=== PATIENT | female | born 1995 | race Two or more races ===

== ENCOUNTER 2017-11-19 19:13 | Inpatient (IN) | payer SELFPAY ==
[2017-11-19] MEDS ORDERED: NS 1,000 ML IV ONE ×5 (19:19→22:20)
[2017-11-19 19:35] LABS: PLATELET COUNT 470 10^3/uL (150-400)
[2017-11-19 20:43] LABS: CREATINE KINASE 11316 IU/L (0-156)
--- NOTE | 2017-11-19 20:54 | CPEKG ---
Heart Rate: 100 RR Interval: 600 P-R Interval: 124 QRSD Interval: 82 QT Interval: 384 QTC Interval: 496 P [place]: 47 QRS [place]: 61 T Wave [place]: 44 EKG Severity - ABNORMAL ECG - EKG Impression: SINUS TACHYCARDIA EKG Impression: PROLONGED QT INTERVAL Electronically Signed By: José Coyle 22-Nov-2017 20:38:01
[2017-11-19] MEDS ORDERED: PROMETHAZINE HCL 25 MG/ML INJ IVP PRN (21:27)
[2017-11-19] MEDS ORDERED: ONDANSETRON DISINTEGRATING 4 MG TAB PO PRN (21:27)
[2017-11-19] MEDS ORDERED: ONDANSETRON 4 MG/2 ML VIAL IVP PRN (21:27)
[2017-11-19] MEDS ORDERED: ACETAMINOPHEN 325 MG TAB PO PRN (21:27)
[2017-11-19] MEDS ORDERED: PROMETHAZINE HCL 25 MG TAB PO PRN (21:27)
[2017-11-19] MEDS ORDERED: HYDROmorphONE/DILAUDID 1 MG/ML INJ IVP PRN (21:27)
[2017-11-19] MEDS ORDERED: HYDROmorphONE/DILAUDID 2 MG TAB PO PRN (21:27)
[2017-11-19] MEDS ORDERED: NS 1,000 ML IV SCH (21:30)
[2017-11-19] MEDS ORDERED: HYDROmorphONE/DILAUDID 1 MG/ML INJ ONE (21:38)
--- NOTE | 2017-11-19 21:59 | GCON ---
[f rep st] CONSULTATION DATE OF CONSULTATION: 11/19/2017 CHIEF COMPLAINT: Bleeding from rectum. HISTORY OF PRESENT ILLNESS: The patient is a 22-year-old woman who traveled from [facility] to do Iron Man. About group home through the marathon, she started having blood per rectum. She finished he race and the bleeding has continued. She complains of abdominal tenderness. It is worse in the l eft lower quadrant. PAST MEDICAL HISTORY: None. PAST SURGICAL HISTORY: None. SOCIAL HISTORY: She lives in [facility]. She does not use tobacco. FAMILY HISTORY: Noncontributory. REVIEW OF SYSTEMS: Significant for abdominal pain, abdominal cramping, blood per rectum. Otherwise 10-point review of systems negative. PHYSICAL EXAM: VITAL SIGNS: 103, 90/69, 18, 90% on room air. GENERAL: Pleasant, well-nourished, w ell-groomed woman lying on bed. HEENT: Normocephalic. No gross hearing deficits. Mucous membranes moist. Pupils equal and round. No scleral icterus. LUNGS: Clear to auscultation bilaterally. No increased work of breathing. CARDIAC: Slightly tachycardic. No peripheral edema. ABDOMEN: Bowel sounds are present. She is soft. She is tender more notably in the lower quadrants. SKIN: Warm a nd dry. PSYCH: Mood and affect normal. NEURO: Grossly intact. MUSCULOSKELETAL: Normal nails. LABORATORY DATA: Results reviewed. I personally reviewed her laboratory work. Her white count is 3 4,000, hemoglobin 16.4, platelets 470. Her chemistry panel is notable for a creatinine of 1.5. Her creatine kinase is 11,000. IMPRESSION AND PLAN: 22-year-old status post Iron Man with blood per rectum. This is consistent wit h ischemic colitis. Due to her creatinine being slightly elevated and her abdominal exam being tende r but no obvious peritonitis, we will hold off on CT scan for now. We can see if her creatinine barbara vers and if abdominal exam is still concerning, we can perform a CT scan later. For now I recommend serial abdominal exams. She needs aggressive rehydration, serial hemoglobin and hematocrits. /[id number]/MODL
--- NOTE | 2017-11-19 22:24 | PDGENHP ---
History and Physical - Chief Complaint Acute hematochezia - History of Present Illness Primary care provider: None HPI: 22-year-old female presents with acute hematochezia characterized as voluminous bright red blood per rectum with onset of symptoms while the patient was on the marathon portion of the [employer] person race today. The patient reports that prior to the race, she had otherwise been feeling well and had not been experiencing any GI symptoms. She successfully completed the swimming and biking portions of the race, and was engaged in the running portion when she began to experience some abdominal discomfort, some bloating and then a sensation like she had moved her bowels. She reports looking down and she sought blood on her right lower extremity. She began to feel dizzy and unwell, and then was brought to the emergency department. While in the emergency department, the patient continued to experience bright red blood per rectum and abdominal discomfort. She received antiemetics and pain medications with alleviation of her abdominal discomfort, but ongoing blood loss per rectum. She was seen in consultation by Dr. Rita Friedman and she has received 4 L of IV fluids. History Information - Allergies/Home Medication List Allergies/Adverse Reactions: No Known Allergies Allergy (Unverified 11/19/17 19:18) Home Medications: Control Pill 1 tab PO DAILY 11/19/17 [Last Taken Unknown] I have personally reviewed and updated: family history, medical history, social history, surgical history - Past Medical History no pertinent PMH - Surgical History Reports: no pertinent surgical hx - Family History Additional family history: Grandparent with colon cancer, no family history of inflammatory bowel disease - Social History Smoking Status: Never smoked Alcohol Use: None Drug Use: None Additional social history: Patient is from [facility], she has been in [place] for approximately 6 days prior to the race, she has completed a half iron person race in the past without any complications Review of Systems Review of Systems: ROS: 10pt was reviewed & negative except for what was stated in HPI & below Gastrointestinal: Reports: rectal bleeding, abdominal pain, nausea Physical Exam Physical Exam: Temp Pulse Resp BP Pulse Ox 37.2 C 88 26 H 81/60 L 94 11/19/17 19:19 11/19/17 22:07 11/19/17 22:07 11/19/17 22:07 11/19/17 22:07 O2 (L/minute) 2 Constitutional: no apparent distress, uncomfortable, No not in pain Eyes: PERRL, anicteric sclera, EOMI Ears, Nose, Mouth, Throat: moist mucous membranes, hearing normal, ears appear normal, no oral mucosal ulcers Cardiovascular: tachycardia, No systolic murmur, No irregularly irregular, No edema Respiratory: no respiratory distress, no rales or rhonchi, clear to auscultation Gastrointestinal: normoactive bowel sounds, tenderness (Mild to moderate depth palpation in the mid and left abdomen), other (Soft), No guarding, No distension Skin: warm, No erythema, No rash Neurologic: AAOx3 Psychiatric: interacting appropriately ( ), not anxious, not encephalopathic, thought process linear, flat affect Lab Data & Imaging Review 11/19/17 Unknown 11/19/17 Unknown WBC 34.46 10^3/uL (3.80-9.50) H 11/19/17 Unknown RBC 5.28 10^6/uL (4.18-5.33) 11/19/17 Unknown Hgb 16.4 g/dL (12.6-16.3) H 11/19/17 Unknown POC Hgb 12.6 gm/dL (12.6-16.3) 11/19/17 21:40 Hct 46.9 % (38.0-47.0) 11/19/17 Unknown POC Hct 37 % (38-47) L 11/19/17 21:40 MCV 88.8 fL (81.5-99.8) 11/19/17 Unknown MCH 31.1 pg (27.9-34.1) 11/19/17 Unknown MCHC 35.0 g/dL (32.4-36.7) 11/19/17 Unknown RDW 13.0 % (11.5-15.2) 11/19/17 Unknown Plt Count 470 10^3/uL (150-400) H 11/19/17 Unknown MPV 8.4 fL (8.7-11.7) L 11/19/17 Unknown Neut % (Auto) Not Reported 11/19/17 Unknown Lymph % (Auto) Not Reported 11/19/17 Unknown Hoke % (Auto) Not Reported 11/19/17 Unknown Eos % (Auto) Not Reported 11/19/17 Unknown Baso % (Auto) Not Reported 11/19/17 Unknown Nucleat RBC Rel Count Not Reported 11/19/17 Unknown Absolute Neuts (auto) Not Reported 11/19/17 Unknown Absolute Lymphs (auto) Not Reported 11/19/17 Unknown Absolute Monos (auto) Not Reported 11/19/17 Unknown Absolute Eos (auto) Not Reported 11/19/17 Unknown Absolute Basos (auto) Not Reported 11/19/17 Unknown Absolute Nucleated RBC Not Reported 11/19/17 Unknown Immature Gran % Not Reported 11/19/17 Unknown Seg Neutrophils % 85.0 % 11/19/17 Unknown Band Neutrophils % 0 % 11/19/17 Unknown Lymphocytes % 7.0 % 11/19/17 Unknown Monocytes % 8.0 % 11/19/17 Unknown Eosinophils % 0 % 11/19/17 Unknown Basophils % 0 % 11/19/17 Unknown Metamyelocytes % 0 % 11/19/17 Unknown Myelocytes % 0 % 11/19/17 Unknown Promyelocytes % 0 % 11/19/17 Unknown Blast Cells % 0 % 11/19/17 Unknown Immature Gran # Not Reported 11/19/17 Unknown Absolute Seg Neuts 29.29 10^/uL (1.70-6.50) H 11/19/17 Unknown Absolute Band Neuts 0.00 10^3/uL (0.00-0.70) 11/19/17 Unknown Absolute Lymphocytes 2.41 10^3/uL (1.00-3.00) 11/19/17 Unknown Absolute Monocytes 2.76 10^3/uL (0.30-0.80) H 11/19/17 Unknown Absolute Eosinophils 0.00 10^3/uL (0.03-0.40) L 11/19/17 Unknown Absolute Basophils 0.00 10^3/uL (0.02-0.10) L 11/19/17 Unknown Absolute Metamyelocyte 0.00 10^3/mL (0.00-0.00) 11/19/17 Unknown Absolute Myelocytes 0.00 10^3/mL (0.00-0.00) 11/19/17 Unknown Absolute Promyelocytes 0.00 10^3/uL (0.00-0.00) 11/19/17 Unknown Absolute Plasma Cells 0.00 10^3/uL (0.00-0.00) 11/19/17 Unknown RBC/WBC/PLT Morphology NORMAL (NORMAL) 11/19/17 Unknown Absolute Blast Cells 0.00 10^3/uL (0.00-0.00) 11/19/17 Unknown Plasma Cells % 0 % 11/19/17 Unknown Platelet Estimate INCREASED (ADEQ) H 11/19/17 Unknown VBG Lactic Acid 2.5 mmol/L (0.7-2.1) H 11/19/17 22:06 POC Sodium 136 mEq/L (135-145) 11/19/17 21:40 Sodium 136 mEq/L (135-145) 11/19/17 Unknown POC Potassium 3.5 mEq/L (3.3-5.0) 11/19/17 21:40 Potassium 5.0 mEq/L (3.3-5.0) 11/19/17 Unknown POC Chloride 102 mEq/L (97-110) 11/19/17 21:40 Chloride 91 mEq/L (97-110) L 11/19/17 Unknown Carbon Dioxide 19 mEq/l (22-31) L 11/19/17 Unknown Anion Gap 26 mEq/L (8-16) H 11/19/17 Unknown POC BUN 28 mg/dL (7-23) H 11/19/17 21:40 BUN 35 mg/dL (7-23) H 11/19/17 Unknown Creatinine 1.5 mg/dL (0.6-1.0) H 11/19/17 Unknown POC Creatinine 1.1 mg/dL (0.6-1.0) H 11/19/17 21:40 Estimated GFR 43 11/19/17 Unknown Glucose 75 mg/dL (70-100) 11/19/17 Unknown POC Glucose 114 mg/dL (70-100) H 11/19/17 21:40 Calcium 10.5 mg/dL (8.5-10.4) H 11/19/17 Unknown Creatine Kinase 81241 IU/L (0-156) H 11/19/17 Unknown CK-MB (CK-2) Fraction 146.00 ng/mL (0.00-4.55) H 11/19/17 Unknown CK-MB (CK-2) % 1.3 % (0.0-4.0) 11/19/17 Unknown Creatine Kinase Interp NEGATIVE (NEGATIVE) 11/19/17 Unknown Beta HCG, Qual NEGATIVE 11/19/17 Unknown Patient ABO/Rh A POSITIVE 11/19/17 21:15 Antibody Screen NEGATIVE 11/19/17 21:15 Visualized and Interpreted EKG results: Yes EKG Interpretation: Positive for: other (Sinus tachycardia with QT interval of approximately 450) Assessment & Plan Assessment: 22-year-old female presenting with acute hematochezia secondary to 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 Ischemic colitis. Acute, most likely secondary to exercise induced reduced blood flow to the mesenteric arteries resulting in ischemia and resultant hematochezia -discussed with Dr. Rita Friedman, she is seeing the patient in consultation, the patient does not currently have a surgical abdomen -monitor abdominal exam closely in the step-down unit, discussed with the ICU charge nurse, please call General surgery if patient develops any peritoneal signs or there are additional concerns -keep NPO, keep on high rate IV fluids at 200 cc/hour of normal saline -continue monitor serial hemoglobin level, declined on repeat labs but currently does not require transfusion 2. Acute kidney injury. Secondary to hypovolemia in the setting of blood loss and physical exertion, continue IV fluids, monitor urine output, monitor serum creatinine level 3. Acute metabolic acidosis. Secondary to lactic acid in the setting of hypotension and severe physical exertion, anticipate delayed clearing the setting of acute kidney injury and rhabdomyolysis -next lactic acid level at midnight, repeat in a.m. Or sooner if warranted 4. Rhabdomyolysis. Acute, evidenced by CPK of 11,000, secondary to physical exertion and muscle breakdown, monitor CPK level, renal function, continue high rate IV fluids 5. Hypotension. Acute, most likely secondary to hypovolemia and active blood loss as well as low systolic blood pressure baseline in a very physically active person -receiving 4th L of normal saline bolus at this time, continue at 200 cc/hour, continue to bolus if active blood loss -discussed with Dr. Friedman, repeat lactic acid at midnight, if rising, she will consider central line and the patient may require pressors 6. Hyponatremia. Acute, presenting serum sodium 133, corrected with normal saline, continue monitor Diet. NPO Prophylaxis. Low risk patient, SCDs Code. Full Disposition. Anticipated discharge uncertain this time, anticipated length stay is greater than for 48 hr for reasonable medical necessity including acute hypotension and ischemic colitis. 40 min of critical care time spent on this patient, at bedside, coordinating her care with the providers outlined above, specifically addressing acute ischemic colitis and hypotension which renders the patient critically ill with high risk of worsening morbidity and/or mortality.
[2017-11-19] MEDS: HYDROmorphone HCL/NS 0.5 MG/ML SYR IVP PRN (23:00)
[2017-11-20 00:28] LABS: PLATELET COUNT 303 10^3/uL (150-400)
--- NOTE | 2017-11-20 00:43 | EDPHY ---
H & P Stated Complaint: Bloody Stool after [employer] Race Time Seen by Provider: 11/19/17 19:20 HPI/ROS: Chief complaint: Bloody diarrhea History of present illness: This is a 22-year-old female who is brought to the emergency department by EMS for bloody diarrhea. Patient was participating in the [employer] race today. She successfully completed swimming and biking, approximately senior living through the run she had an episode of bloody diarrhea. She was able to complete in finish the run. However she had continued bloody diarrhea with bright red blood coming from the rectum intermittently. She was hypotensive according to EMS with a systolic pressure in the 70s in the field. On my evaluation she has mild abdominal discomfort, feels weak, diffuse achiness. She continues to have bloody stools in the emergency room. Review of systems: A 10 point review of systems was obtained and other than described above was negative - Personal History LMP (Females 10-55): Over 28 Days Ago Current Tetanus Diphtheria and Acellular Pertussis (TDAP): Yes - Medical/Surgical History Hx Asthma: No Hx Chronic Respiratory Disease: No Hx Diabetes: No Hx Cardiac Disease: No Hx Renal Disease: No Hx Cirrhosis: No Hx Alcoholism: No Hx HIV/AIDS: No Hx Splenectomy or Spleen Trauma: No Other PMH: denies - Social History Smoking Status: Never smoked - Physical Exam Exam: General Appearance: Alert, unwell but nontoxic appearing. Eyes: Pupils equal and round no pallor or injection. ENT, Mouth: Mucous membranes moist. Respiratory: There are no retractions, lungs are clear to auscultation. Cardiovascular: Regular rate and rhythm. Gastrointestinal: Bowel sounds are present. Abdomen is soft. Mild distention. Mild tenderness. No guarding or other peritoneal signs. Neurological: Alert and oriented x4. Skin: Warm and dry, no rashes. Musculoskeletal: Neck is supple non tender. Extremities are symmetrical, full range of motion. Psychiatric: Patient is oriented X 3, there is no agitation. Constitutional: Initial Vital Signs Temperature (C) 37.2 C 11/19/17 19:19 Heart Rate 108 H 11/19/17 19:19 Respiratory Rate 16 11/19/17 19:19 Blood Pressure 100/80 11/19/17 19:19 O2 Sat (%) 94 11/19/17 19:19 O2 Delivery Mode Nasal Cannula O2 (L/minute) 2 Allergies/Adverse Reactions: No Known Allergies Allergy (Unverified 11/19/17 19:18) Home Medications: Medication Instructions Recorded Control Pill 1 tab PO DAILY 11/19/17 Medical Decision Making ED Course/Re-evaluation: Patient is discussed with my secondary supervising physician Dr. Jesse Palm. Patient presents with abdominal cramping and bloody diarrhea. She has on going bloody diarrhea in the emergency room. This appears to be a ischemic colitis. Evidence of further complications by blood studies including rhabdomyolysis, acute kidney injury, hyponatremia and ultimately likely hypovolemia as she is intermittently hypotensive in the emergency room. 2 IVs have been established. She is aggressively IV hydrated. I consulted with Gastroenterology, Dr. Live, he does believe this is consistent with an ischemic colitis. He does recommend admission and surgical consultation. If GI input is further required he asked that the hospitalist team consult him. Dr. Marsh of the hospitalist team will admit this patient. Dr. Rita Friedman of General surgery will consult on this patient. The plan has been discussed with the patient who voiced understanding and agreement with it. Differential Diagnosis: Included but not limited to ischemic colitis, other causes of lower GI bleeding including diverticulitis, upper GI bleeds of multiple etiologies - Data Points Laboratory Results: 11/19/17 11/19/17 11/19/17 21:15 20:53 19:28 POC Hgb 15.6 gm/dL gm/dL (12.6-16.3) POC Hct 46 % % (38-47) VBG Lactic Acid 2.4 mmol/L H mmol/L (0.7-2.1) POC Sodium 133 mEq/L L mEq/L (135-145) POC Potassium 4.2 mEq/L mEq/L (3.3-5.0) POC Chloride 98 mEq/L mEq/L (97-110) POC BUN 33 mg/dL H mg/dL (7-23) POC Creatinine 1.6 mg/dL H mg/dL (0.6-1.0) POC Glucose 83 mg/dL mg/dL (70-100) Patient ABO/Rh A POSITIVE Antibody Screen NEGATIVE Medications Given: Hydromorphone/Sodium Chloride (Hydromorphone) 0.2 - 1 mg IVP Q2 PRN PRN Reason: Pain, Severe Unable to Take PO Stop: 11/29/17 21:26 Last Admin: 11/19/17 23:00 Dose: 1 mg Discontinued Medications Hydromorphone HCl (Dilaudid) 0.2 - 1 mg IVP Q2 PRN PRN Reason: Pain, Severe Unable to Take PO Stop: 11/29/17 21:26 Last Admin: 11/19/17 21:39 Dose: 0.4 mg Sodium Chloride (Ns) 1,000 mls @ 0 mls/hr IV EDNOW ONE; Wide Open PRN Reason: Protocol Stop: 11/19/17 19:20 Last Admin: 11/19/17 19:24 Dose: 1,000 mls Sodium Chloride (Ns) 1,000 mls @ 0 mls/hr IV ONCE ONE PRN Reason: Wide Open Stop: 11/19/17 19:50 Last Admin: 11/19/17 20:10 Dose: 1,000 mls Sodium Chloride (Ns) 1,000 mls @ 0 mls/hr IV ONCE ONE; Wide Open PRN Reason: Protocol Stop: 11/19/17 21:28 Last Admin: 11/19/17 21:29 Dose: 1,000 mls Sodium Chloride (Ns) 1,000 mls @ 0 mls/hr IV ONCE ONE; Wide Open PRN Reason: Protocol Stop: 11/19/17 22:07 Last Admin: 11/19/17 22:32 Dose: 1,000 mls Sodium Chloride (Ns) 1,000 mls @ 0 mls/hr IV ONCE ONE PRN Reason: Wide Open Stop: 11/19/17 22:21 Last Admin: 11/19/17 23:26 Dose: Not Given Point of Care Test Results: Chemistry 11/19/17 19:28 POC Sodium 133 mEq/L L mEq/L (135-145) POC Potassium 4.2 mEq/L mEq/L (3.3-5.0) POC Chloride 98 mEq/L mEq/L (97-110) POC BUN 33 mg/dL H mg/dL (7-23) POC Creatinine 1.6 mg/dL H mg/dL (0.6-1.0) POC Glucose 83 mg/dL mg/dL (70-100) ISTAT H&H 11/19/17 19:28 POC Hgb 15.6 gm/dL gm/dL (12.6-16.3) POC Hct 46 % % (38-47) Departure - Departure Disposition: [facility] Inpatient Acute Clinical Impression: Ischemic colitis, DIONNA (acute kidney injury), Hyponatremia Rhabdomyolysis Qualifiers: Rhabdomyolysis type: traumatic Encounter type: initial encounter Qualified Code (s): T79.6XXA - Traumatic ischemia of muscle, initial encounter Condition: Fair
[2017-11-20 06:07] LABS: PLATELET COUNT 268 10^3/uL (150-400)
[2017-11-20] MEDS: HYDROmorphone HCL/NS 0.5 MG/ML SYR IVP PRN ×3 (06:08→20:49)
[2017-11-20 06:14] LABS: CREATINE KINASE 7454 IU/L (0-156)
--- NOTE | 2017-11-20 10:43 | HOSPPROG ---
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 Ischemic colitis. Acute, most likely secondary to exercise induced reduced blood flow to the mesenteric arteries resulting in ischemia and resultant hematochezia -discussed with Dr. Jesse Garza, he recommends colonoscopy if recurrence (which could be e/o an outside process), but patient could certainly get a colonoscopy s/p resolution if desired -at risk for recurrence w/ future endurance races 2. Acute kidney injury. Secondary to hypovolemia in the setting of blood loss and physical exertion, continue IV fluids, monitor urine output, monitor serum creatinine level -Cr normalized 3. Acute metabolic acidosis. Secondary to lactic acid in the setting of hypotension and severe physical exertion, anticipate delayed clearing the setting of acute kidney injury and rhabdomyolysis -resolved 4. Rhabdomyolysis. Acute, evidenced by CPK of 11,000, secondary to physical exertion and muscle breakdown -CPK downtrending w/ IVF, cont IVF and CPK monitoring 5. Hypotension. Acute, resolved, runs low baseline around 90 6. Hyponatremia. Acute, presenting serum sodium 133, corrected with normal saline, continue monitor Diet. Regular w/ IVF Prophylaxis. Low risk patient, SCDs Code. Full Disposition. Anticipated discharge 11/21, pending stabilization of above. Subjective: mild abdominal discomfort, no further hematochezia Objective: Vital Signs Temp Pulse Resp BP Pulse Ox 35.9 C L 85 20 90/64 L 99 11/19/17 23:41 11/20/17 08:00 11/20/17 08:00 11/20/17 08:00 11/20/17 08:00 Laboratory Results 11/20/17 05:30 11/20/17 05:30 11/19/17 11/20/17 11/21/17 05:59 05:59 05:59 Intake Total 5164 Output Total 600 8035 Balance 4189 -1324 - Physical Exam Constitutional: no apparent distress, appears nourished, not in pain, uncomfortable Cardiovascular: regular rate and rhythym, no murmur, rub, or gallop, No edema Respiratory: no respiratory distress, no rales or rhonchi, clear to auscultation Gastrointestinal: normoactive bowel sounds, no palpable masses, tenderness ( mild in mid-lower abd), No guarding, No distension Neurologic: AAOx3, sensation intact bilaterally, No weakness Psychiatric: interacting appropriately, not anxious, not encephalopathic, thought process linear ICD10 Worksheet Patient Problems: Problems Problem Status Onset Ischemic colitis Acute Rhabdomyolysis Acute DIONNA (acute kidney injury) Acute Hyponatremia Acute
--- NOTE | 2017-11-20 12:55 | PDMN ---
Medical Necessity Medical necessity: MCG: M-182, GI Bleed, Lower; A-2 days, inpatient for ischemic colitis, NPO, IV fluids, bright red blood per rectum, tachycardic with hypotension, DIONNA (creat 1.6), acute metabolic acidosis, Rhabdo ([place] [address]), cont to monitor. Anticipate greater than 2 midnights ongoing med nec care.
--- NOTE | 2017-11-20 15:21 | ASMTCMCOM ---
CM Note CM Note Notes: 22yr female from [facility] participating in the [employer] admitted for Acute hematochezia, Ischemic colitis, DIONNA, Rhabdo. She has been staying with a friend and has a ticket back to [facility] on Monday. It's important to her financially to be able to make that Monday flight. Hopefully she will be medically stable before that time. Date Signed: 11/20/2017 03:20 PM Electronically Signed By:Estefanía Garcia LCSW
--- NOTE | 2017-11-20 15:41 | SOAPPROG ---
SOAP Progress Note Assessment/Plan: Assessment: 22-YEAR-OLD FEMALE SUSTAINED A ISCHEMIC COLITIS AND BLOODY BOWEL MOVEMENTS FOLLOWING HER IRON MAN PARTICIPATION NO FURTHER BLEEDING AT THIS TIME. SHE COMPLAINS OF SOME MILD LEFT LOWER QUADRANT CRAMPS BUT IS OTHERWISE FEELING GOOD/AFEBRILE/HEMATOCRIT STABLE HEENT NONICTERIC, PERRLA, NO ADENOPATHY CHEST CLEAR COR REGULAR RHYTHM ABDOMEN SOFT POSITIVE BOWEL SOUNDS, NONDISTENDED, MINIMAL LEFT LOWER QUADRANT TENDERNESS AND NO HERNIAS EXTREMITIES FULL RANGE OF MOTION FULL PULSES NEURO INTACT SKIN NO LESIONS OR RASHES PSYCH ALERT ORIENTED COOPERATIVE GENERAL HEALTHY 22-YEAR-OLD FEMALE IN NO ACUTE DISTRESS, AFEBRILE Plan: OBSERVATION/SERIAL HEMATOCRITS/GI CONSULT FOR POSSIBLE COLONOSCOPY FOLLOW -UP 11/20/17 15:39 Objective: Vital Signs Temp Pulse Resp BP Pulse Ox 37.3 C 81 12 91/59 L 95 11/20/17 15:21 11/20/17 15:21 11/20/17 15:21 11/20/17 15:21 11/20/17 15:21 Laboratory Results 11/20/17 05:30 11/20/17 05:30 11/19/17 11/20/17 11/21/17 05:59 05:59 05:59 Intake Total 5164 Output Total 975 1325 Balance 4189 -1325 ICD10 Worksheet Patient Problems: Problems Problem Status Onset DIONNA (acute kidney injury) Acute Hyponatremia Acute Ischemic colitis Acute Rhabdomyolysis Acute
[2017-11-20 22:26] VITALS: BP 99/61
--- NOTE | 2017-11-21 22:32 | GDS ---
[f rep st] DISCHARGE SUMMARY DISCHARGE DIAGNOSES: 1. Acute ischemic colitis. 2. Exercise-associated hyponatremia. 3. Acute rhabdomyolysis. 4. Acute kidney injury. CONSULTATIONS DURING THIS ADMISSION: General Surgery. PROCEDURES DURING THIS ADMISSION: None. CHIEF COMPLAINT: Acute hematochezia. SUBJECTIVE: The patient is feeling well at time of discharge, she has had brown stool, her abdominal discomfort is minimal. PHYSICAL EXAM: GENERAL: Alert, awake. Oriented x3, pain level 0/10. ABDOMEN: Soft, very minimally tender to moderate depth palpation, bowel sounds are present, there is no guarding, no peritoneal si gns. LABORATORY DATA: Laboratory values at time of discharge: creatinine 0.8. CPK down trending. Serum sodium normalized. HOSPITAL COURSE BY PROBLEM: The patient presented with acute ischemic colitis and resultant hematoch ezia induced by severe exercise at the [employer] challenge. The patient most likely experienced bowel ischemia secondary to over exertion, and this resulted in hematochezia as well as abdominal pain and bloating. The patient was seen in consultation by General Surgery and was decided to not have a jerel gical abdomen. She received supportive care with IV fluids, pain medications, and antiemetics. We t rended her hemoglobin level to ensure she was not experiencing significant blood-loss anemia. Her cr eatinine level was elevated on presentation secondary to hypovolemia, resulting in acute kidney injur y, and this resolved with IV fluid hydration. She also experienced exercise-associated hyponatremia, and this resolved with normal saline solution. Her rhabdomyolysis responded to IV hydration and her CPK was down trending at the time of discharge. I advised the patient that she should continue to c onsume solute-containing fluids as well as a light diet for the next several days. Given that the henrik hernández's symptoms have completely resolved and she has had a normal brown bowel movement, she is safe for discharge. I discussed patient's presentation with our gastroenterology clinical practice consultant, and they adv ised that the patient could elect to have an outpatient colonoscopy upon returning home, to ensure th at the bleeding was in fact from ischemic colitis and not from another lower GI source. That being s aid, they did indicate that this would be elective for the patient and if she does experience any rec urrent hematochezia, they would recommend this as an absolute recommendation. We also advised that t he patient may have future episodes of ischemic colitis if she continues to engage in endurance activ ities, and I have advised the patient to this end. I have recommended that she schedule a followup c onsultation with a chair car driver upon returning home, so that she is able to maintain proper hydration during future endurance challenges. DISCHARGE MEDICATIONS: Please see official discharge medication reconciliation sheet in chart, of no te, patient is being discharged home on as-needed Dilaudid 2 mg, 20 tabs prescribed; as needed, Zofra n 4 mg tabs, 30 tabs prescribed. DISCHARGE INSTRUCTIONS: The patient is instructed to follow up with outpatient chair car driver upon ret urning home, and consider the possibility of an outpatient colonoscopy. Greater than 30 minutes were spent on direct patient care as well as discharge planning and preparati on. It was a pleasure serving on the care team of this patient. /[id number]/MODL
== END 2017-11-21 10:37 | disposition home or self-care (01) | DRG 394 ==
LOC: F2N 22:40 → F3E 11-20 13:22
PROVIDERS: ADMIT Internal Medicine; ATTEND Internal Medicine
DX: K55.039 Acute (reversible) ischemia of large intestine, extent unspecified (principal); E87.1 Hypo-osmolality and hyponatremia; N17.9 Acute kidney failure, unspecified; M62.82 Rhabdomyolysis; E86.9 Volume depletion, unspecified
CPT/HCPCS: 82435-PO; 82565-PO; 82947-PO; 84132-PO; 84295-PO; 84520-PO; 85014-PO; J1170